=== PATIENT | male | born 1950 | race Caucasian/White ===

== ENCOUNTER 2024-01-17 08:51 | Outpatient (CLI) | payer OTHER, SELFPAY ==
--- NOTE | 2024-01-17 09:03 | ECG_ITS ---
Test Date: 2024-01-17 09:10:25 Measurements Intervals Wallace Rate: 65 P: 65 NE: 202 QRS: -29 QRSD: 158 T: -3 QT: 447 QTc: 467 Interpretive Statements SINUS RHYTHM WITH OCCASIONAL VENTRICULAR PREMATURE COMPLEXES RIGHT BUNDLE BRANCH BLOCK [120+ ms QRS DURATION, UPRIGHT V1, 40+ ms S IN I/aVL/V4/V5/V6] ABNORMAL ECG No previous ECG available for comparison Electronically Signed On 01-17-2024 14:36:56 CDT by Edenilson Delong M.D.
[2024-01-17 09:39] LABS: Anion Gap 9 mmol/L (4-12); Blood Urea Nitrogen 11 mg/dL (9-20); Calcium 9.6 mg/dL (8.4-10.2); Carbon Dioxide 31 mmol/L (22-30); Chloride 93 mmol/L (98-107); Estimated Glomerular Filt Rate > 60; Glucose 116 mg/dL (65-110); Potassium 3.6 mmol/L (3.4-5.0); Sodium 133 mmol/L (137-145)
== END 2024-01-17 08:52 | disposition home or self-care (01) ==
LOC: ANHSURGERY 08:56
PROVIDERS: Anesthesiology; PCP Family Medicine; Visit Provider Urology
DX: Z01.818 Encounter for other preprocedural examination (principal); I10 Essential (primary) hypertension; R94.31 Abnormal electrocardiogram [ECG] [EKG]
CPT/HCPCS: 36415; 80048; 93005

== ENCOUNTER 2024-01-20 00:15 | Day surgery (SDC) | payer OTHER, SELFPAY ==
--- NOTE | 2024-01-11 08:05 | PM.IMHP ---
H&P: HPI History of Present Illness Date/Time: 01/11/24 08:05 Chief Complaint: Difficulty voiding Narrative: patient with longstanding obstructive and irritable voiding symptoms that have started to fail combination therapy (alpha blockers and 5 alpha reductase inhibitors ). He complains of urinary frequency urgency with nocturia and diminished force of stream. After discussion of options he is elected for TURP. Prostate volume by ultrasound is 30 g. He is aware of the risks including, limited to, adverse cardiopulmonary events, persistent voiding symptoms and hematuria. Review of Systems Cardiovascular: Cardiovascular: Denies chest pain, Denies lightheadedness, Denies palpitations and Denies dyspnea Respiratory: Respiratory: Denies dyspnea Gastrointestinal: Gastrointestinal: Denies diarrhea, Denies nausea and Denies vomiting Genitourinary: Genitourinary: Denies hematuria and Denies dysuria Endocrine: Endocrine: Denies palpitations [facility] Family History Family History (Updated 12/07/13 @ 07:13 by DOCTOR UNKNOWN) Mother Carcinoma of colon Father Family history of heart disease in male family member before age 55 Social History Social History Smoking status: Never smoker Alcohol intake: current Exam Const: General: no acute distress Resp: Effort & Inspection: normal respiratory effort GI: Inspection: non-distended GI Palp: No abdominal tenderness and No Guarding due to palpation present (GI) Auscultation: normal bowel sounds Assessment and Plan Assessment and plan (1) BPH loc w urin obs/LUTS: Code(s): N40.1 - Benign prostatic hyperplasia with lower urinary tract symptoms Status: Acute Assessment and Plan: TURP
--- NOTE | 2024-01-14 12:51 | PC.NURSE ---
Report to the Outpatient Waiting Room, entrance under the green pavilion located off [facility], at time 11:30 AM on date 01/20/24 . Planned Procedure Time: _1:30 PM .? Time changes happen often and if your time is changed the preop area will call you the afternoon before. - You and your visitor will be asked to self-screen and do not enter if you have any COVID symptoms. Please call surgeon if you need to reschedule. - A mask is optional within the hospital at this time. Patients may have clear liquids (water, carbonated beverages, clear teas, apple juice) until 3 hours prior to surgery( 10:30 AM) with a maximum of 20 ounces. - No food from midnight until time of surgery and no smoking - Infants may have breast milk until 4 hours before surgery, formula 6 hours prior to surgery. - Children will be allowed to drink immediately following surgery.? If applicable, please bring a bottle or sippy cup to assist with drinking. Juice, water, soda, and popsicles are readily available.? For infants on formula, please bring formula the day of surgery.? Pacifiers are allowed. Take only the following medications with a SIP of water on the morning of surgery: _INHALER IF NEEDED, DO NOT STOP ANY OF YOUR OTHER PRESCRIPTION MEDICATIONS PRIOR TO SURGERY EXCEPT THE FOLLOWING Medications to discontinue per physician ____HOLD ALL VITAMINS AND SUPPLEMENTS 3 DAYS PRE OP.LAST DOSE 01/16/24 Please no make-up, nail palestinian, hairspray, perfume, deodorant, or body powder the day of surgery.? No jewelry (including any body piercings) or valuables the day of surgery, leave them at home.? Please take a shower or bath the night before, or the morning of, surgery with an antibacterial soap.? Wear comfortable, loose fitting clothing.? Children are encouraged to wear pajamas. - Jewelry must be removed prior to entering the operating room.? Rings and piercings that are not removed may be cut off. - The hospital will not accept responsibility for valuables.? - Please leave all valuables, including medications, at home the day of surgery. If you are going home after surgery, a licensed local delivery truck driver must drive you home.? - NO public transportation without another adult if you receive anesthesia. - We recommend that an adult stay with you for 24 hours following discharge. - We also recommend that you do not drive, make important decision, drink alcoholic beverages, or take any drugs that were not prescribed by your health care provider for at least 24 hours after your discharge time. Follow any additional instructions given to you from your surgeon. Telephone instructions given to __PATIENT and asked if any additional questions and then verbalized understanding. Patient advised to call surgeon office or pre surgery nurse liaison [phone] if any additional questions.
[2024-01-14 12:58] VITALS: BMI 24.3
[2024-01-20] VITALS (13 sets, daily range): BP systolic 139–179; BP diastolic 68–89; PULSE 58–72; RESP 12–20; TEMP 36.1–36.7; O2SAT 96–100; BMI 26.4
--- NOTE | 2024-01-20 06:13 | WPDHPUPDATE1 ---
History and Physical Update Update Date/Time: 01/20/24 06:13 History and Physical has been reviewed, including an updated exam of the patient. There are NO changes in the patient's condition. Risks, benefits, and alternatives have been discussed and questions answered. Patient agrees to proceed with procedure.
--- NOTE | 2024-01-20 11:36 | P.PNAN_ITS ---
Anes - Initial Pre Proc Eval Procedure: Operation Date: 01/20/24 13:30 Proposed Procedures p Trans Urethral Resection Prostate - Lyle Reyes MD Date/Time: 01/20/24 11:36 Surgeon: Lyle Reyes MD Pre Op Diagnosis: BPH Patient Data Age: 73 Gender: M Height: 1.73 m Weight: 72.6 kg Allergies Allergy/AdvReac Type Severity Reaction Status Date / Time No Known Allergies Allergy Verified 01/14/24 12:41 Home Medications Medication Instructions Recorded Confirmed Type albuterol sulfate 90 mcg/actuation 2 puff inhalation PRN PRN 01/14/24 01/20/24 History aerosol inhaler Shortness Of Breath coQ10 (ubiquinol) 200 mg capsule 200 mg PO DAILY 01/14/24 01/14/24 History finasteride 5 mg tablet 5 mg PO DAILY 01/14/24 01/14/24 History multivitamin (Daily Multi-Vitamin 1 tablet PO DAILY 01/14/24 01/14/24 History tablet) omeprazole 20 mg capsule,delayed 20 mg PO DAILY 01/14/24 01/14/24 History release simvastatin 20 mg tablet 20 mg PO HS 01/14/24 01/14/24 History tamsulosin 0.4 mg capsule 0.4 mg PO HS 01/14/24 01/14/24 History triamterene 37.5 1 tablet PO DAILY 01/14/24 01/14/24 History mg-hydrochlorothiazide 25 mg tablet Patient hx anesthesia problems: none Family hx anesthesia problems: none Results Review: All pre-operative results and documents have been reviewed as part of the pre- operative evaluation. [facility] Past Medical History Medical History (Updated 01/20/24 @ 11:36 by Toby Ma MD) HTN (hypertension) Family History Family History Mother Carcinoma of colon Father Family history of heart disease in male family member before age 55 Social History Social History Smoking status: Never smoker Alcohol intake: current Living arrangements: with family Spiritual care concerns: No Anes - Eval Final PreProcedure Day of Procedure 01/20/24 11:36 Patient weight: normal Heart: regular rate and rhythm Airway: Mallampati scale class II Neurological: alert and oriented Last oral intake: >/= 8 hours ASA classification: II Emergent: no Anesthetic plan: proceed Anesthesia type and monitoring: general LMA and standard monitoring Results Review: All pre-operative results and documents have been reviewed as part of the pre- operative evaluation. Informed Consent: The patient's anesthetic plan and its attendant risks and benefits were discussed with the patient/family/POA. Questions were solicited and answers provided to the satisfaction of the patient/family/POA.
[2024-01-20] MEDS: LACTATED RINGERS 1,000 ML 30 ML IV CONT (11:39)
[2024-01-20] MEDS: ceFAZolin 2 GM/D5W 50 ML 2 GM/50 ML BAG IVPB (12:27)
[2024-01-20] MEDS: LIDOCAINE HCL 2% GEL UROJET 10 ML PKG MUCOUS MEM (12:42)
--- NOTE | 2024-01-20 13:07 | W.PM.PROC2 ---
Procedure Note - Detailed Date of Procedure 01/20/24 Pre-op Diagnosis BPH Post-op Diagnosis Same Procedure Performed TURP Surgeon Lyle Reyes MD Anesthesia General Description of Procedure The patient was brought to the operative suite where he is prepped and draped in routine sterile fashion while in the dorsal lithotomy position after the uneventful induction of a general LMA anesthetic. A 24 Mauritanian resectoscope sheath was placed into his bladder. He had no urethral strictures. The patient had bilobar hyperplasia with no median lobe. The bladder itself was endoscopically normal, showing no mucosal hyperemia, intravesical neoplasm or foreign bodies. There was a single, orthotopic ureteral orifice bilaterally. These orifices were identified and preserved throughout the remainder of the procedure. The left lateral lobe was resected starting at the 6 o'clock position, working counter clockwise to the 12 o'clock position. Again, resection was carried out from the bladder neck to the verumontanum until the capsular fibers of the prostate were identified. The right lateral lobe was resected in a similar fashion starting at the 6 o'clock position working clockwise to the 12 o'clock position and carried out until the capsular fibers of the prostate were identified. Apical tissue was then circumferentially resected. All chips were evacuated from the bladder using an [employer] evacuator. Hemostasis was obtained with electric cautery. The ureteral orifices were again inspected and found to be without injury. Estimated blood loss throughout this procedure was 50cc. The patient was taken to recovery room having tolerated this well. Drains No Pathology None sent Complications No immediate complications Condition Stable
[2024-01-20] MEDS: HYDROcodone/acetaminophen (*CRX) 5-325 MG TABLET 1 TAB PO (15:43)
[2024-01-20] MEDS: HYOSCYAMINE SULFATE 0.125 MG TABLET SUBLINGUAL (15:44)
--- NOTE | 2024-01-20 15:47 | ADMGEN ---
This patient, Sha Gallegos, was admitted to Medical Room 348-01. Patient/family oriented to hospital policies and general routines including ID bracelet, bed and alarms, visiting hours, pain management, procedures, bathroom and other care routines, personal items, smoking policy, room service/diet, and visiting hours. Information on how to activate the Rapid Response Team has been discussed. Patient/Family are encouraged to report perceived risks to care and to ask questions if they do not understand what they are told or what they should do.
[2024-01-20] MEDS: DOCUSATE SODIUM 100 MG CAPSULE PO (17:45)
[2024-01-20] MEDS: SIMVASTATIN 20 MG TABLET PO (21:08)
[2024-01-20] MEDS: ceFAZolin 1 GM/NS 50 ML 1 GM/50 ML BAG IVPB (21:08)
[2024-01-21 00:43] VITALS: BP 177/83; PULSE 65; RESP 20; TEMP 36.7; O2SAT 99
[2024-01-21 04:43] VITALS: BP 149/72; PULSE 63; RESP 20; TEMP 36.7; O2SAT 98
[2024-01-21] MEDS: HYOSCYAMINE SULFATE 0.125 MG TABLET SUBLINGUAL (05:08)
[2024-01-21] MEDS: ceFAZolin 1 GM/NS 50 ML 1 GM/50 ML BAG IVPB (05:09)
[2024-01-21 05:20] LABS: Hematocrit 44.6 % (42.0-52.0)
[2024-01-21 05:28] LABS: Anion Gap 8 mmol/L (4-12); Blood Urea Nitrogen 11 mg/dL (9-20); Calcium 9.5 mg/dL (8.4-10.2); Carbon Dioxide 29 mmol/L (22-30); Chloride 98 mmol/L (98-107); Estimated CRCL calculation 76 ml/min; Estimated Glomerular Filt Rate > 60; Glucose 117 mg/dL (65-110); Potassium 3.9 mmol/L (3.4-5.0); Sodium 135 mmol/L (137-145)
--- NOTE | 2024-01-21 07:31 | WPDUROPN2 ---
Progress Note: A&P Assessment and Plan (1) BPH loc w urin obs/LUTS: Code(s): N40.1 - Benign prostatic hyperplasia with lower urinary tract symptoms Status: Acute Assessment and Plan: Doing well POD #1 s/p TURP. CBI off now / voiding trial later this morning if urine remains clear. Subjective Subjective Date/Time Seen: 01/21/24 07:31 Interval history: Comfortable, no complaints Review of Systems Cardiovascular: Cardiovascular: Denies chest pain, Denies lightheadedness, Denies palpitations and Denies dyspnea Respiratory: Respiratory: Denies dyspnea Gastrointestinal: Gastrointestinal: Denies diarrhea, Denies nausea and Denies vomiting Genitourinary: Genitourinary: Denies hematuria and Denies dysuria Endocrine: Endocrine: Denies palpitations Objective Data Vital Signs Vital Signs: Vital Signs - 24 hr 01/20/24 11:37 01/20/24 13:07 01/20/24 13:25 Temperature 97 F L 97.8 F Pulse Rate 66 58 L 65 Respiratory Rate 14 18 Blood Pressure 169/83 H 139/68 150/74 H Pulse Oximetry 100 99 96 Oxygen Delivery Room Air Simple Face Mask Room Air Oxygen Flow Rate 8 01/20/24 13:40 01/20/24 13:55 01/20/24 14:10 Temperature Pulse Rate 64 61 72 Respiratory Rate 12 12 18 Blood Pressure 166/80 H 157/89 H 166/82 H Pulse Oximetry 99 98 100 Oxygen Delivery Room Air Room Air Room Air Oxygen Flow Rate 01/20/24 14:25 01/20/24 14:40 01/20/24 15:20 Temperature 96.9 F L Pulse Rate 70 62 65 Respiratory Rate 16 14 18 Blood Pressure 168/83 H 164/86 H 179/86 H Pulse Oximetry 99 99 96 Oxygen Delivery Room Air Room Air Oxygen Flow Rate 01/20/24 15:36 01/20/24 16:05 01/20/24 17:22 Temperature 97.0 F L 97.0 F L Pulse Rate 66 66 Respiratory Rate 16 18 Blood Pressure 170/88 H 176/83 H Pulse Oximetry 100 96 Oxygen Delivery Room Air Oxygen Flow Rate 01/20/24 17:05 01/20/24 20:30 01/20/24 20:00 Temperature 97.2 F L 98.1 F Pulse Rate 72 61 Respiratory Rate 18 20 Blood Pressure 164/83 H 164/74 H Pulse Oximetry 100 99 Oxygen Delivery Room Air Oxygen Flow Rate 01/21/24 00:43 01/21/24 04:43 Temperature 98.1 F 98.1 F Pulse Rate 65 63 Respiratory Rate 20 20 Blood Pressure 177/83 H 149/72 H Pulse Oximetry 99 98 Oxygen Delivery Oxygen Flow Rate Intake/Output Intake/Output: Intake & Output 01/18/24 01/19/24 01/20/24 01/21/24 23:59 23:59 23:59 23:59 Intake Total 5380 480 Output Total 7300 Balance -1920 480 Meds/Results Medications: Active Medications Generic Name Dose Route Start Last Admin Trade Name Freq PRN Reason Stop Dose Admin Hydrocodone Bitart/Acetaminophen 1 tab 01/20/24 14:58 01/20/24 15:43 Hydrocodone/Acetaminophen (*Crx) 5-325 Mg Tablet PO 1 tab Q4H PRN Administration Pain Rated 1-6 Albuterol 2 puff 01/20/24 14:58 Albuterol Sulfate (*Sp) Aerosol 1 Puff INHALATION PRN PRN Shortness Of Breath Cephalexin HCl 500 mg 01/21/24 09:00 Cephalexin 500 Mg Capsule PO QID JOSE ALFREDO Docusate Sodium 100 mg 01/20/24 17:00 01/20/24 17:45 Docusate Sodium 100 Mg Capsule PO 100 mg BID JOSE ALFREDO Administration Hyoscyamine 0.125 mg 01/20/24 14:58 01/21/24 05:08 Hyoscyamine Sulfate 0.125 Mg Tablet SUBLINGUAL 0.125 mg Q6H PRN Administration Bladder Spasm Morphine Sulfate 2 mg 01/20/24 14:58 Morphine Sulfate (*Crx) 2 Mg/Ml Inj IV PUSH Q2H PRN Pain Rated 7-10 Naloxone HCl 0.1 mg 01/20/24 14:58 Naloxone Hcl 0.4 Mg/Ml Vial IV PUSH Q2M PRN Opiate Reversal Ondansetron HCl 4 mg 01/20/24 14:58 Ondansetron Inj 4 Mg/2 Ml Vial IV PUSH Q12H PRN Nausea And Vomiting Pantoprazole Sodium 40 mg 01/21/24 09:00 Pantoprazole 40 Mg Tablet PO QAM JOSE ALFREDO Simvastatin 20 mg 01/20/24 21:00 01/20/24 21:08 Simvastatin 20 Mg Tablet PO 20 mg HS JOSE ALFREDO Administration Triamterene/Hydrochlorothiazide 1 tab 01/21/24 09:00 Triamterene 37.5
[2024-01-21] MEDS: TRIAMTERENE 37.5 MG/HCTZ 25 MG (MAXZIDE) TABLET 1 TAB PO (08:29)
[2024-01-21] MEDS: CEPHALEXIN 500 MG CAPSULE PO ×3 (08:29→17:08)
[2024-01-21] MEDS: PANTOPRAZOLE 40 MG TABLET PO (08:29)
[2024-01-21] MEDS: DOCUSATE SODIUM 100 MG CAPSULE PO ×2 (08:29→17:08)
[2024-01-21 08:43] VITALS: BP 124/68; PULSE 78; RESP 18; TEMP 36.6; O2SAT 98
--- NOTE | 2024-01-21 10:59 | WPDANESPN ---
Anes - Prog Note Post-Op Date/Time: 01/21/24 10:59 Cardiovascular status: normal Respiratory status: normal Airway patency: baseline Mental status: baseline Post-Op hydration status: normal Vital Signs: Last Vital Signs Temp 36.7 C 01/21/24 04:43 Pulse 63 01/21/24 04:43 Resp 20 01/21/24 04:43 BP 149/72 H 01/21/24 04:43 Pulse Ox 98 01/21/24 04:43 O2 Del Method Room Air 01/21/24 08:00 O2 Flow Rate 8 01/20/24 13:07 Pain Score (VAS): 06/19 I/O: Intake & Output 01/20/24 01/21/24 01/21/24 23:59 07:59 15:59 Intake Total 5030 480 240 Output Total 4700 Balance 330 480 240 Laboratory Tests 01/21/24 05:05 01/21/24 05:05 01/21/24 05:05 Hgb 15.0 Hct 44.6 Sodium 135 L Potassium 3.9 Chloride 98 Carbon Dioxide 29 Anion Gap 8 BUN 11 Creatinine 0.70 Estim Creat Clear Calc 76 Estimated GFR > 60 Glucose 117 H Calcium 9.5 Post-procedural complaints: none Patient Feedback: Patient satisfied with anesthetic care.
[2024-01-21 12:43] VITALS: BP 149/82; PULSE 80; RESP 18; TEMP 36.1; O2SAT 100
--- NOTE | 2024-01-21 16:32 | PM.DS ---
DS: Admitting Diagnosis Discharge Date 01/21/2024 Admitting Diagnosis BPH DS: Discharge Diagnosis Discharge Diagnosis (1) BPH loc w urin obs/LUTS: Code(s): N40.1 - Benign prostatic hyperplasia with lower urinary tract symptoms Status: Acute DS: Summary Hospital Course Hospital Course: Patient with long-standing outlet obstructive voiding symptoms secondary to prostate enlargement. He had had 1 prior negative prostate biopsy in the remote past and a more recent negative prostate MRI. He was admitted on morning of TURP. His postoperative course was uneventful from the standpoint that he had clear urine and underwent a voiding trial on the day following the procedure. Unexpectedly, however he was unable to void at a volume of 550cc. of 18 F coude catheter was replaced with ease with drainage of clear urine. We made the decision for discharge with an indwelling catheter to a leg bag and voiding trial on Wednesday morning. 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 I discussed this with the patient and his prior to discharge. Time Spent with Patient Time attestation: Total time spent providing and/or coordinating discharge services: DS: Data Data Completed and Pending Completed studies during hospitalization: Pending at discharge 01/20/24 12:57 Surgical [PTH] Routine Labs on day of discharge: Labs from last 24 hours 01/21/24 05:05 Hgb 15.0 Hct 44.6 Sodium 135 L Potassium 3.9 Chloride 98 Carbon Dioxide 29 Anion Gap 8 BUN 11 Creatinine 0.70 Estim Creat Clear Calc 76 Estimated GFR > 60 Glucose 117 H Calcium 9.5 Discharge Plan Discharge Patient Disposition: Home, Self-Care Discharge Instructions: 1) Cole catheter -> leg bag / bedside bag at night. 2) No lifting/straining >15lbs. x3 weeks. 3) No driving x1-week. 4) Resume normal, pre-operative diet. 5) F/U Tuesday 01/23 [id number] for catheter removal / voiding trial. Stand Alone Forms: General Discharge Instructions Discharge Orders: Discharge Order (Routine); Ordered 01/21/24 Ordered By: Lyle Reyes Discharge Medications: New docusate sodium [Colace] 100 mg capsule 100 mg PO DAILY Qty: 30 0RF hydrocodone-acetaminophen 5-325 mg tablet 1 - 2 tablet PO Q6H PRN (Reason: pain) Qty: 20 0RF sulfamethoxazole-trimethoprim 800-160 mg tablet 1 tablet PO Q12H Qty: 6 0RF Continued simvastatin 20 mg tablet 20 mg PO HS triamterene-hydrochlorothiazid 37.5-25 mg tablet 1 tablet PO DAILY omeprazole 20 mg capsule,delayed release(DR/EC) 20 mg PO DAILY albuterol sulfate 90 mcg/actuation HFA aerosol inhaler 2 puff INHALATION PRN PRN (Reason: Shortness Of Breath) multivitamin [Daily Multi-Vitamin] Tablet 1 tablet PO DAILY Held coQ10 (ubiquinol) 200 mg Capsule 200 mg PO DAILY Hold Instructions: Resume on 01/24/24. Discontinued tamsulosin 0.4 mg capsule 0.4 mg PO HS finasteride 5 mg tablet 5 mg PO DAILY
== END 2024-01-21 17:21 | disposition home or self-care (01) ==
LOC: ANHSURGERY 11:01 → ANH3MED 15:02
PROVIDERS: PCP Family Medicine; Visit Provider Urology
PROC: 0VT08ZZ Resection of Prostate, Via Natural or Artificial Opening Endoscopic (ICD-10-PCS; CPT 52601; principal; 2024-01-20 13:30)
DX: C61 Malignant neoplasm of prostate (principal); N40.1 Benign prostatic hyperplasia with lower urinary tract symptoms; I10 Essential (primary) hypertension; R35.0 Frequency of micturition; Z79.51 Long term (current) use of inhaled steroids; Z80.0 Family history of malignant neoplasm of digestive organs; Z82.49 Family history of ischemic heart disease and other diseases of the circulatory system
CPT/HCPCS: 52601; 36415; 80048; 85014; 85018; 88305; 93005; A9270; C1757; J0690; J1100; J2003; J2405; J2704; J3010; J7120